=== PATIENT | female | born 1995 | race African-American/Black ===

== ENCOUNTER 2017-08-19 21:26 | Emergency (ER) | payer OTHER ==
[~2017-08-19] VITALS: Ht 175.3 cm; Wt 90.9 kg
[2017-08-19 21:28] VITALS: BP 132/69
[2017-08-19] MEDS ORDERED: CLEOCIN HCL300 MG PO (21:33)
[2017-08-19 21:59] LABS: COLLECTION METHOD CLEAN CATCH
[2017-08-19 22:04] LABS: MUCOUS Present /lpf; PH 5 (5-8); URINE APPEARANCE Hazy; URINE BACTERIA None Seen /hpf; URINE BILIRUBIN Negative (NEGATIVE); URINE BLOOD Negative (NEGATIVE); URINE COLOR Amber; URINE GLUCOSE Negative (NEGATIVE); URINE KETONE Negative (NEGATIVE); URINE LEUKOCYTE ESTERASE Negative (NEGATIVE); URINE NITRATE Negative (NEGATIVE); URINE PROTEIN(semi-quant) 1+ (NEGATIVE); URINE RBC 0-2 /hpf; URINE UROBILINOGEN Negative (NEGATIVE)
[2017-08-19] MEDS ORDERED: ZOFRAN 4MG T4 MG/TAB PO (23:36)
[2017-08-20 00:25] VITALS: PULSE 78
== END 2017-08-20 00:25 | disposition home or self-care (01) ==
LOC: COL.ER 21:26
PROVIDERS: Physician Assistant Medical
DX: K21.9 Gastro-esophageal reflux disease without esophagitis (principal); Z98.890 Other specified postprocedural states
CPT/HCPCS: J1885; J2405; J7030